=== PATIENT | male | born 1995 | race Two or more races ===

== ENCOUNTER 2021-01-09 17:15 | Emergency (ER) | payer SELFPAY ==
[~2021-01-09] VITALS: Ht 172.7 cm; Wt 67.0 kg
[2021-01-09 17:44] VITALS: BP 123/66
[2021-01-09] MEDS ORDERED: HYDROcodone/APAP 5/325MG 1 TAB TABLET PO ONE (17:45)
--- NOTE | 2021-01-09 18:04 | ED.ADGEN ---
Past Medical History Past Surgical History: No Surgical History Smoking Status: Never Smoker Alcohol Use: None General Adult EDM: Chief Complaint: UPPER EXTREMITY PAIN HPI: HPI: Patient is a 25 year old male who presents emergency department with complaints of pain in his left shoulder and lateral left clavicle after a soccer injury last night. Patient collided with another player. Patient denies any neck, head, back, or lower extremity pain. He denies any shortness of breath or pain with respirations. Patient denies any medical or surgical history. He currently rates his pain 8 out of 10 on the pain scale, he is not taking anything for pain prior to arrival. Review of Systems: Review of Systems: Complete ROS is negative unless otherwise noted in HPI. Current Medications: Current Medications Medications (Trade) Dose Ordered Sig/Brenda Start Time Stop Time Status Last Admin Dose Admin Acetaminophen/ Hydrocodone Bitart (Lortab 5/325) 1 tab 1X ONCE 01/09/21 17:45 01/09/21 17:48 DC 01/09/21 18:02 1 TAB Allergies: Allergies: Allergies Coded Allergies Type Severity Reaction Last Updated Verified No Known Drug Allergies 01/09/21 No Physical Exam: PE: See Above Constitutional: Well developed, well nourished, no acute distress, non-toxic appearance. [] HENT: Normocephalic, atraumatic, bilateral external ears normal, nose normal. [] Eyes: PERRLA, EOMI, conjunctiva normal, no discharge. [] Neck: Normal range of motion, no stridor. [] Cardiovascular:Heart rate regular rhythm; lateral left clavicle tenderness to palpation without crepitus or subcutaneous emphysema Lungs & Thorax: Respirations even and unlabored, no retractions, no respiratory distress Skin: Warm, dry, no erythema, no rash. [] Extremities: Left shoulder: Diffuse anterior tenderness to palpation without crepitus or obvious deformity, sensation intact, ROM limited due to pain, 2+ radial pulse, no edema Neurologic: Alert and oriented X 3, no focal deficits noted. [] Psychologic: Affect normal, judgement normal, mood normal. [] Current Patient Data: Vital Signs: Vital Signs Date Time Temp Pulse Resp B/P (MAP) Pulse Ox O2 Delivery O2 Flow Rate FiO2 01/09/21 17:44 98.8 60 12 123/66 98 Room Air 98.8 EKG: EKG: [] Heart Score: C/O Chest Pain: No Radiology/Procedures: Radiology/Procedures: [] Impression: [facility] [address] [place] [address] IMAGING REPORT Signed PATIENT: RONALD LEESOUNT: [id number] : 1995 LOCATION: ER AGE: 25 SEX: M EXAM STATUS: REG ER ORD. PHYSICIAN: ARMAND SEO APRN REASON: lateral L clavicle and L shoulder pain after soccer injury yesterday PROCEDURE: SHOULDER 2+V LEFT Left shoulder AP and scapular x-rays 3 views HISTORY: Left clavicle and shoulder pain after soccer injury one day ago. FINDINGS: No fracture. No dislocation. No distraction of the acromioclavicular joint which has a joint distance of 4 mm which is normal. The soft tissues are unremarkable. IMPRESSION: Normal exam. Electronically signed by: Nicole Schwarz MD (01/09/2021 7:04 PM) [facility] [place] and SIGNED BY: NICOLE SCHWARZ MD DATE: 01/09/21 [id number] 0 Course & Med Decision Making: Course & Med Decision Making Pertinent Labs and Imaging studies reviewed. (See chart for details) 1819- Report to Tianna Sibley APRN at this time, awaiting x-ray completion for disposition. [] Filippo Disclaimer: Filippo Disclaimer: This electronic medical record was generated, in whole or in part, using a voice recognition dictation system. Departure Departure Impression: Primary Impression: Shoulder pain Disposition: HOME / SELF CARE / HOMELESS Condition: STABLE Referrals: NO PCP (PCP) PAT FERNANDEZ MD Patient Instructions: Shoulder Pain Additional Instructions: FOLLOW UP WITH A PRIMARY CARE PROVIDER OR A ORTHOPEDIC. TAKE IBUPROFEN FOR PAIN. USE ICE OR HEAT TO HELP WITH PAIN. Problem Qualifiers Primary Impression: Shoulder pain Chronicity: acute Laterality: unspecified laterality Qualified Codes: M25.519 - Pain in unspecified shoulder ARMAND SEO APRN Jan 09, 2021 18:04 TIANNA SIBLEY APRN Jan 09, 2021 19:12
--- NOTE | 2021-01-09 19:07 | RAD ---
Left shoulder AP and scapular x-rays 3 views HISTORY: Left clavicle and shoulder pain after soccer injury one day ago. FINDINGS: No fracture. No dislocation. No distraction of the acromioclavicular joint which has a join t distance of 4 mm which is normal. The soft tissues are unremarkable. IMPRESSION: Normal exam. Electronically signed by: Edwar Schwarz MD (01/09/2021 7:04 PM) [facility]
== END 2021-01-09 20:10 | disposition home or self-care (01) ==
LOC: ER 17:15
DX: M25.512 Pain in left shoulder (principal); G89.11 Acute pain due to trauma; W52.XXXA Crushed, pushed or stepped on by crowd or human stampede, initial encounter; Y93.66 Activity, soccer; Y92.89 Other specified places as the place of occurrence of the external cause; Y99.8 Other external cause status
CPT/HCPCS: 73030; 99283; A4565